=== PATIENT | female | born 1975 | race Caucasian/White ===

== ENCOUNTER 2016-10-20 10:15 | Emergency (ER) | payer OTHER, BC ==
--- NOTE | 2016-10-20 10:40 | Emergency Department Record ---
History of Present Illness - General Chief complaint: Extremity Problem Stated complaint: MASS IN GROIN Time Seen by Provider: 10/20/16 10:40 Source: Patient Mode of Arrival: Ambulatory Limitations: No limitations - History of Present Illness Initial comments: The patient is here due to having swelling to the L groin area for the last 10 days. She had an abdominoplasty and tummy tuck done in [place] just about a month ago and began having problems over the L groin surgical site as stated. She denies any severe pain, fever, chills, or redness at the site but does have mild aching at times which is worse with movement. She did contact her plastic surgeon and was told to go to the ER for an US. Complaint: Other Onset/Timin -: Week(s) Location: Left, Other History of Same: No Severity scale (1-10): 1 Quality: Aching Consistency: Intermittent Improves with: Rest Worsens with: Exertion, Walking Associated Symptoms: Denies other symptoms - Related Data Home Medications Medication Instructions Recorded Confirmed Last Taken No Home Med [NO HOME MEDS] 10/20/16 10/20/16 Unknown Allergies Allergy/AdvReac Type Severity Reaction Status Date / Time No Known Allergies Allergy PT UNSURE Verified 10/20/16 10:28 OF REACTION Travel Screening - Travel/Exposure Within Last 30 Days Have you traveled within the last 30 days?: No - Travel/Exposure Within Last Year Have you traveled outside the [place] in the last year?: No - Additonal Travel Details Have you been exposed to anyone with a communicable illness?: No Review of Systems Constitutional: Denies: Chills, Fever Eyes: Denies: Eye discharge ENT: Denies: Congestion Respiratory: Denies: Cough, Dyspnea Past Medical History - SOCIAL HISTORY Smoking Status: Never smoker Alcohol Use: Occassional Drug Use: None - RESPIRATORY Hx Respiratory Disorders: No - CARDIOVASCULAR Hx Cardio Disorders: No - NEURO Hx Neuro Disorders: No - GI Hx GI Disorders: No - Hx Genitourinary Disorders: No - ENDOCRINE Hx Endocrine Disorders: No - MUSCULOSKELETAL Hx Musculoskeletal Disorders: No - PSYCH Hx Psych Problems: No - HEMATOLOGY/ONCOLOGY Hx Hematology/Oncology Disorders: No Family Medical History Any Significant Family History?: Yes Hx Cancer: Grandparents Hx Diabetes: Mother Hx Heart Disease: Father Hx HTN: Father Physical Exam - General General Appearance: Alert, Oriented x3, Cooperative, No acute distress - Head Head exam: Atraumatic - Neck Neck exam: Normal inspection, Full ROM. negative: Tenderness - Respiratory Respiratory exam: Normal lung sounds bilaterally. negative: Respiratory distress - Cardiovascular Cardiovascular Exam: Regular rate, Normal rhythm, Normal heart sounds - GI/Abdominal GI/Abdominal exam: Soft, Normal bowel sounds, Tenderness (There is mild tenderness to palpation over the L groin suture site where a probable hematoma is located. There is no overlying redness or warmth.). negative: Distended, Guarding, Rigid Course Vital Signs 10/20/16 10:29 Temperature 98.4 F Pulse Rate 56 L Respiratory 16 Rate Blood Pressure 118/71 Pulse Ox 97 - Reevaluation(s) Reevaluation #1: The patient is doing very well. I did discuss the US with her and the need for F /U. 10/20/16 12:20 Reevaluation #2: I did discuss the case with Shayla who is Dr. Olmos's PA and she did recommend that the patient have the area apirated. I then did discuss the case with Dr. Santana and he will see the patient in his office. 10/20/16 12:47 Medical Decision Making - Data Complexity MDM Data: Labs Ordered and/or Reviewed, X-Ray Ordered and/or Reviewed - Lab Data Result diagrams: 10/20/16 10:50 10/20/16 10:50 - Radiology Data Radiology results: Report reviewed (US: 5x2x3 cm complex cyst prob a Seroma but possibly and abscess.) Disposition Disposition: Discharge Clinical Impression: Post-operative complication Qualifiers: Surgical complication system/body Area: subcutaneous tissue Surgical complication type: unspecified Procedure type: dermatologic Qualified Code(s): L76.82 - Other postprocedural complications of skin and subcutaneous tissue Disposition: Home, Self-Care Condition: (1) Good Instructions: Pelvic Pain in Women (ED) Additional Instructions: Please call today for an appointment with Dr. Santana to be seen later this week. Return to the ER for any problems. Referrals: Griffin Santana [DOCTOR OF OSTEOPATH] - Forms: Patient Portal Access Time of Disposition: 13:01
[2016-10-20 11:14] LABS: BASO % 0.4 % (0-6); GRAN % 63.8 % (47-80); HEMATOCRIT 38.3 % (35.0-47.0); HEMOGLOBIN 13.1 gm/dl (11.6-16.0); LYMPH % 24.1 % (16-45); MEAN CELL VOLUME 95.3 fl (81-97); MEAN CORPUSCULAR HEMOGLOBIN 32.6 pg (27-33); MEAN CORPUSCULAR HGB CONC 34.2 g/dl (32-36); MEAN PLATELET VOLUME 9.4 fl (7.4-10.4); MONO % 8.7 % (0-9); PLATELET COUNT 219 K/uL (130-400); RED BLOOD COUNT 4.02 M/uL (3.80-5.40); WHITE BLOOD COUNT W/O DIFF 7.1 K/uL (4.2-12.2)
[2016-10-20 11:25] LABS: ANION GAP 4.1 (7-16); BLOOD UREA NITROGEN 19 mg/dL (7-17); CARBON DIOXIDE 21.9 mmol/L (22-30); CREATININE 0.9 mg/dL (0.52-1.04); EST GLOMERULAR FILTRATION RATE > 60 ml/min; GLUCOSE,RANDOM 100 mg/dL (70-110)
[2016-10-20 11:26] LABS: C-REACTIVE PROTEIN < 0.5 mg/dL (0.0-0.9)
--- NOTE | 2016-10-22 07:39 | ULTRASOUND REPORT ---
EXAM: LIMITED ULTRASOUND OF THE ABDOMEN HISTORY: PALPABLE ABNORMALITY, RECENT SURGERY. TECHNIQUE: Transverse and longitudinal sonographic images were obtained in the region of the patient's clinical/palpable abnormality near her incision site over the left lower quadrant. Comparison: None. FINDINGS: At the site of the patient's clinical/palpable abnormality is a complex cystic area measuring 5.2 x 1.9 x 3.6 cm. This has internal debris and septation. This could relate to seroma. Infectious process or abscess not excluded. There is an adjacent, likely reactive lymph node. IMPRESSION: COMPLEX CYSTIC AREA CORRESPONDING TO THE CLINICAL/PALPABLE ABNORMALITY ABOVE. THIS COULD RELATE TO SEROMA. ABSCESS IS NOT EXCLUDED. JOB NUMBER: [id number] MTDD
== END 2016-10-20 13:16 | disposition home or self-care (01) ==
LOC: ER 10:15
DX: K91.872 Postprocedural seroma of a digestive system organ or structure following a digestive system procedure (principal)
CPT/HCPCS: 76705; 80048; 85025; 86140; 99283